=== PATIENT | female | born 1995 | race Caucasian/White ===

== ENCOUNTER 2017-02-13 17:24 | Emergency (ER) | payer OTHER ==
[2017-02-13 17:29] VITALS: BP 132/61; PULSE 98; TEMP 99.1; BMI 25.2
--- NOTE | 2017-02-13 18:33 | PDOC ---
History of Present Illness - General Chief Complaint: Sore Throat Stated Complaint: COLD SYMPTOMS Time Seen by Provider: 02/13/17 18:03 History Source: Patient - History of Present Illness Initial Comments: 02/13/17 18:36 Pt. is a 22 y/o female with no significant PMH who presents to fast track today complaining of 3 days of generalized body aches, sore throat, ear ache, self reported fevers, nausea and vomiting. Pt states that her throat started to bother her first and the other symptoms followed. States that she vomited twice today and developed chills so she decided to be evaluated. Denies palpitations, chest pain, SOB, diarrhea/constipation, hematuria, frequency, dysuria. Denies recent travel, sick contacts . States she had her flu shot this year. She is currently on her menstrual cycle. Past History - Past Medical History Allergies/Adverse Reactions: Allergies Allergy/AdvReac Type Severity Reaction Status Date / Time No Known Allergies Allergy Verified 02/13/17 17:30 Home Medications: Ambulatory Orders Vit/Iron Fumarate/FA [ Tablet] 1 each PO DAILY 02/03/16 Asthma: No Cancer: No Cardiac Disorders: No Diabetes: No HTN: No Seizures: No Thyroid Disease: No Other medical history: PATIENT DENIES PAST MEDICAL HISTORY - Reproductive History (#): 2 Para: 0 Therapeutic (s) & number: Yes (2) Spontaneous : 2 - Psycho/Social/Smoking Cessation Hx Anxiety: No Suicidal Ideation: No Smoking History: Never smoked Have you smoked in the past 12 months: No Hx Alcohol Use: No Drug/Substance Use Hx: No Substance Use Type: None Hx Substance Use Treatment: No *Physical Exam - Vital Signs Last Vital Signs Temp Pulse Resp BP Pulse Ox 99.1 F 98 H 18 132/61 98 02/13/17 17:26 02/13/17 17:26 02/13/17 17:26 02/13/17 17:26 02/13/17 17:26 - Physical Exam Comments: 02/13/17 18:44 General: NAD; AAOx3, Tachycardic HEENT: Normocephalic, atraumatic, PERRLA (+), JAIR, (-) scleral icterus. TMs pearly mason with good cones of light and landmarks bilaterally. No erythema in the posterior pharynx, tonsils 1+ in size. Neck: (-) LAD, (-) thyromegaly Cardiac: Tachycardic, regular rhythm. S1 and S2 heard. No M/R/G: Respiratory: Chest expansion equal B/L; CTAB ABD: Soft, non-tender. (+) bowel sounds, (-) tenderness to palpation in all quadrants. No organomegaly Medical Decision Making - Medical Decision Making 02/13/17 19:08 Pt is a 22 y/o female with no significant PMH presenting with flu like symptoms. Flu swab collected and ibuprofen given for pain. Centor score 0. Pt. currently has her menstrual cycle, UA shows leukoesterases, but pt. denies urinary symptoms. Will get a Urine culture. If positive will start antibiotic at that time. Will re-evaluate. 02/13/17 20:07 Flu swab negative. D/C home with instructions for viral illness. *DC/Admit/Observation/Transfer Diagnosis at time of Disposition: Viral syndrome - Discharge Dispostion Disposition: HOME Condition at time of disposition: Improved Admit: No - Referrals Referrals: Rayne Kessler MD [Primary Care Provider] - - Patient Instructions Printed Discharge Instructions: DI for Viral Syndrome Additional Instructions: You have a viral illness; your flu swab was negative. Drink plenty of fluids and take ibuprofen 800mg every 8 hours as needed for fevers, pain, or chills. Follow up with your primary care doctor in one week. - Post Discharge Activity Work/School Note: Back to Work
[2017-02-13] MEDS ORDERED: IBUPROFEN 400 MG TABLET (FP) PO ONE ×2 (18:34→19:21)
== END 2017-02-13 20:30 | disposition home or self-care (01) ==
LOC: JERFT 17:24
DX: B34.9 Viral infection, unspecified (principal)
CPT/HCPCS: 81003; 81015; 84703; 87086; 87804; 99281-25

== ENCOUNTER 2017-08-19 21:08 | Emergency (ER) | payer OTHER ==
[2017-08-19 21:23] VITALS: BP 146/88; PULSE 90; TEMP 99.1; BMI 25.2
[2017-08-19 22:39] LABS: URINE APPEARANCE SLCLOUDY; URINE BILIRUBIN NEGATIVE (NEGATIVE); URINE BLOOD NEGATIVE (NEGATIVE); URINE COLOR YELLOW; URINE GLUCOSE (UA) NEGATIVE (NEGATIVE); URINE KETONE NEGATIVE (NEGATIVE); URINE NITRITE NEGATIVE (NEGATIVE); URINE PROTEIN NEGATIVE (NEGATIVE)
[2017-08-19] MEDS ORDERED: DEXAMETHASONE SOD PHOSPHATE 10 MG/1 ML VIAL ONE (23:05)
[2017-08-19] MEDS ORDERED: DEXAMETHASONE LIQUID 0.5 MG/5 ML 240 ML BULK BOTTLE PO ONE (23:06)
--- NOTE | 2017-08-19 23:06 | PDOC ---
History of Present Illness - General Chief Complaint: Injury Stated Complaint: FALL INJURY Time Seen by Provider: 08/19/17 22:50 History Source: Patient Exam Limitations: No Limitations - History of Present Illness Initial Comments: 08/19/17 23:14 This is a 22-year-old woman with past medical history of migraines who presents today with lower back pain status post slip and fall while at work yesterday. Patient states she was at work return to us look at her friend and slipped on some bright crumbs falling down landing on her buttocks with more weight on the left side versus the right. Patient denies striking her head or any loss of consciousness. Patient denies any saddle anesthesia or numbness and tingling to bilateral lower extremities. Patient states she feels feverish but has not checked her temperature. Patient endorses a sore throat which makes it difficult for her to swallow. She reports decrease in appetite for the past 2 days and states she has not eaten or drinking anything throughout the day today. She denies chest pain, shortness of breath, cough, abdominal pain, nausea , vomiting. Patient states she has not had a menstrual period in the past 3 months. Past History - Past Medical History Allergies/Adverse Reactions: Allergies Allergy/AdvReac Type Severity Reaction Status Date / Time No Known Allergies Allergy Verified 02/13/17 17:30 Home Medications: Ambulatory Orders Oseltamivir Phosphate [Tamiflu -] 75 mg PO DAILY #5 capsule 08/19/17 Asthma: No Cancer: No Cardiac Disorders: No Diabetes: No HTN: No Seizures: No Thyroid Disease: No - Reproductive History (#): 2 Para: 0 Therapeutic (s) & number: Yes (2) Spontaneous : 2 - Suicide/Smoking/Psychosocial Hx Smoking History: Never smoked Have you smoked in the past 12 months: No Information on smoking cessation initiated: No Hx Alcohol Use: No Drug/Substance Use Hx: No Substance Use Type: None Hx Substance Use Treatment: No *Physical Exam - Vital Signs Last Vital Signs Temp Pulse Resp BP Pulse Ox 99.1 F 90 16 146/88 98 08/19/17 21:18 08/19/17 21:18 08/19/17 21:18 08/19/17 21:18 08/19/17 21:18 ED Treatment Course - ADDITIONAL ORDERS Additional order review: Laboratory Results 08/19/17 08/19/17 22:30 22:30 Urine Color Yellow Urine Appearance Slcloudy Urine pH 5.0 Urine Protein Negative Urine Glucose (UA) Negative Urine Ketones Negative Urine Blood Negative Urine Nitrite Negative Urine Bilirubin Negative Urine Urobilinogen 2.0 H Urine HCG, Qual Negative Medical Decision Making - Medical Decision Making 08/19/17 23:14 A/P: This is a 22-year-old woman with past medical history of migraines who presents today with lower back pain status post slip and fall while at work yesterday. Patient states she was at work return to us look at her friend and slipped on some bright crumbs falling down landing on her buttocks with more weight on the left side versus the right. Patient denies striking her head or any loss of consciousness. Patient denies any saddle anesthesia or numbness and tingling to bilateral lower extremities. Patient states she feels feverish but has not checked her temperature. Patient endorses a sore throat which makes it difficult for her to swallow. She reports decrease in appetite for the past 2 days and states she has not eaten or drinking anything throughout the day today. She denies chest pain, shortness of breath, cough, abdominal pain, nausea , vomiting. Patient states she has not had a menstrual period in the past 3 months. Patient is alert and oriented 3 and in no apparent distress. Inspection of the oropharynx shows peritonsillar erythema without exudate. Palpable submandibular lymph nodes bilaterally. No anterior or posterior cervical lymphadenopathy present. Tenderness to right lateral neck. No muscle spasm appreciated. Patient with full range of motion of neck without difficulty. Chest nontender. Respirations even and unlabored. Patient speaking in full sentences. Lungs clear to auscultation bilaterally. Regular rate and rhythm. S1 and S2 present. No murmurs, rub or gallop. Normoactive bowel sounds. Abdomen soft nontender nondistended. Patient with paraspinous tenderness to left paraspinous region. No muscle spasms appreciated. Patient with full range of motion against resistance of all extremities. +2 DP and PT pulses. Full sensation in lower extremities. Palpation of spine in the lower back reveals no deformities, crepitus or step offs. Diagnosisviral illness, traumatic lower back pain. Patient is refusing influenza testing at this time. I will profile thickly treat influenza by given prescription for Tamiflu which patient should take 75 mg daily for the next 5 days. Patient to take Tylenol as needed for fever and/ or pain. I will give the patient 10 mg of Decadron orally now to assist in swallowing. *DC/Admit/Observation/Transfer Diagnosis at time of Disposition: Viral syndrome Back pain Qualifiers: Back pain location: low back pain Chronicity: acute Back pain laterality: right Sciatica presence: without sciatica Qualified Code(s): M54.5 - Low back pain - Discharge Dispostion Disposition: HOME Condition at time of disposition: Stable Admit: No - Prescriptions Prescriptions: Oseltamivir Phosphate [Tamiflu -] 75 mg PO DAILY #5 capsule - Referrals Referrals: Rayne Kessler MD [Primary Care Provider] - - Patient Instructions Printed Discharge Instructions: DI for Low Back Pain, DI for Viral Pharyngitis Additional Instructions: Drink plenty of fluids. Take Tamiflu 75 mg 1 tablet daily for the next 5 days. Take Tylenol as directed by manufacturers instructions as needed for fever and pain. Make take phenylephrine to help with nasal congestion as directed by manufacturers instructions. After a fall, pain usually gets worse for the first 2-3 days and won't improve until 4 days after the injury. Return to emergency department for any numbness or tingling to the legs, genitals, rectal, severe pain not relieved by medications, change in voice, difficulty swallowing her own saliva, or any other concerns. Thank you for choosing us to provide your emergent healthcare needs. - Post Discharge Activity Forms/Work/School Notes: Back to Work
[2017-08-20 11:43] LABS: URINE LEUK ESTERASE Negative (NEGATIVE)
== END 2017-08-19 23:07 | disposition home or self-care (01) ==
LOC: JERFT 21:08
DX: M54.5 Low back pain (principal); B34.9 Viral infection, unspecified; W01.0XXA Fall on same level from slipping, tripping and stumbling without subsequent striking against object, initial encounter; Y93.89 Activity, other specified; Y92.512 Supermarket, store or market as the place of occurrence of the external cause; Y99.0 Civilian activity done for income or pay
CPT/HCPCS: 81003; 84703; 99281-25

== ENCOUNTER 2018-07-27 19:55 | Emergency (ER) | payer OTHER ==
[2018-07-27 20:02] VITALS: BP 126/70; PULSE 60; TEMP 98.3; BMI 25.3
--- NOTE | 2018-07-27 20:06 | PDOC ---
History of Present Illness - General Chief Complaint: Vaginal Bleeding Stated Complaint: ,Possible/VAGINAL BLEEDING Time Seen by Provider: 07/27/18 20:06 Past History - Past Medical History Allergies/Adverse Reactions: Allergies Allergy/AdvReac Type Severity Reaction Status Date / Time No Known Allergies Allergy Verified 07/27/18 20:01 Home Medications: Ambulatory Orders Oseltamivir Phosphate [Tamiflu -] 75 mg PO DAILY #5 capsule 08/19/17 Asthma: No Cancer: No Cardiac Disorders: No COPD: No Diabetes: No HTN: No Seizures: No Thyroid Disease: No - Reproductive History (#): 2 Para: 0 Therapeutic (s) & number: Yes (2) Spontaneous : 2 - Suicide/Smoking/Psychosocial Hx Smoking History: Never smoked Have you smoked in the past 12 months: No Hx Alcohol Use: No Drug/Substance Use Hx: No Substance Use Type: None Hx Substance Use Treatment: No *Physical Exam - Vital Signs Last Vital Signs Temp Pulse Resp BP Pulse Ox 98.3 F 60 18 126/70 100 07/27/18 19:59 07/27/18 19:59 07/27/18 19:59 07/27/18 19:59 07/27/18 19:59 *DC/Admit/Observation/Transfer - Referrals Referrals: Brandyn Cohen MD [Primary Care Provider] - - Patient Instructions - Post Discharge Activity
[2018-07-27 20:33] LABS: BASO % 0.5 % (0-2.0); EOS % 0.9 % (0-4.5); LYMPH % 31.1 % (8-40); MCH 22.5 pg (25.7-33.7); MCHC 32.3 g/dl (32.0-36.0); MEAN CELL VOLUME 69.6 fl (80-96); MONO % 6.9 % (3.8-10.2); NEUT % 60.6 % (42.8-82.8); PLATELET COUNT 159 K/MM3 (134-434); RBC 4.89 M/mm3 (3.60-5.2); RDW 13.7 % (11.6-15.6); WHITE BLOOD COUNT 7.4 K/mm3 (4.0-10.0)
[2018-07-27 20:39] LABS: URINE APPEARANCE CLEAR; URINE BILIRUBIN NEGATIVE (<2.0 mg/dL); URINE COLOR LTYELLOW; URINE GLUCOSE (UA) NEGATIVE (NEGATIVE); URINE KETONE NEGATIVE (NEGATIVE); URINE LEUK ESTERASE TRACE (NEGATIVE); URINE NITRITE NEGATIVE (NEGATIVE); URINE PROTEIN NEGATIVE (NEGATIVE); URINE UROBILINOGEN NEGATIVE mg/dL (0.2-1.0)
[2018-07-27 20:48] LABS: EPI CELLS FEW /HPF (FEW); URINE MUCUS RARE
--- NOTE | 2018-07-27 21:06 | PDOC ---
History of Present Illness - General Chief Complaint: Vaginal Bleeding Stated Complaint: ,Possible/VAGINAL BLEEDING Time Seen by Provider: 07/27/18 20:06 History Source: Patient Exam Limitations: No Limitations - History of Present Illness Travel History: No Initial Comments: 07/28/18 01:06 Best Contact: PCP: Dr. Tavares/OB Pmhx:0 Pshx:0 Allergies:NKDA FH:0 Social Hx: Cigarettes/ 0 Alcohol/ 0 Drugs/0 LMP:Jul 04, 2018 23-year-old female presents to the emergency department stating she had vaginal discharge. Patient states she noticed a quarter size blood clot times approximately 6 hours ago without abdominal discomfort, flank pains, urinary symptoms: Frequency/urgency/hesitancy, hematuria, nausea/vomiting, fever/chills , headache, dizziness, lightheadedness, chest pain, shortness of breath. Patient states she was advised by her PMD 2 days ago that she was unknown for how long. Patient has an appointment with her recruitment director in 3 days. Past History - Past Medical History Allergies/Adverse Reactions: Allergies Allergy/AdvReac Type Severity Reaction Status Date / Time No Known Allergies Allergy Verified 07/27/18 20:01 Home Medications: Ambulatory Orders NK [No Known Home Medication] 07/27/18 Asthma: No Cancer: No Cardiac Disorders: No COPD: No Diabetes: No HTN: No Seizures: No Thyroid Disease: No - Reproductive History Is Patient Now?: Yes (#): 4 Para: 1 Therapeutic (s) & number: Yes (2) Spontaneous : 2 - Suicide/Smoking/Psychosocial Hx Smoking History: Never smoked Have you smoked in the past 12 months: No Hx Alcohol Use: No Drug/Substance Use Hx: No Substance Use Type: None Hx Substance Use Treatment: No Review of Systems - Review of Systems Able to Perform ROS?: Yes Comments:: 07/28/18 01:12 CONSTITUTIONAL: Absent: fever, chills, diaphoresis, generalized weakness, malaise, loss of appetite HEENT: Absent: rhinorrhea, nasal congestion, throat pain, throat swelling, difficulty swallowing, mouth swelling, ear pain, eye pain, visual Changes CARDIOVASCULAR: Absent: chest pain, loss of consciousness, palpitations, irregular heart rate, peripheral edema RESPIRATORY: Absent: cough, shortness of breath, dyspnea with exertion, orthopnea, wheezing, stridor, hemoptysis GASTROINTESTINAL: Vaginal clot ~ quarter size Absent: abdominal pain, abdominal distension, nausea, vomiting, diarrhea, constipation, melena, hematochezia GENITOURINARY: Absent: dysuria, frequency, urgency, hesitancy, hematuria, flank pain, genital pain MUSCULOSKELETAL: Absent: myalgia, arthralgia, joint swelling SKIN: Absent: rash, itching, pallor Is the patient limited Micronesian proficient: No *Physical Exam - Vital Signs Last Vital Signs Temp Pulse Resp BP Pulse Ox 98.3 F 60 18 126/70 100 07/27/18 19:59 07/27/18 19:59 07/27/18 19:59 07/27/18 19:59 07/27/18 19:59 - Physical Exam Comments: 07/28/18 01:13 GENERAL: Well developed, well nourished. Awake and alert. No acute distress. HEENT: Normocephalic, atraumatic. PERRLA, EOMI. No conjunctival pallor. Sclera are non- icteric. Moist mucous membranes. Oropharynx is clear. NECK: Supple. Full ROM. No JVD. Carotid pulses 2+ and symmetric, without bruits. No thyromegaly. No lymphadenopathy. CARDIOVASCULAR: Regular rate and rhythm. No murmurs, rubs, or gallops. Distal pulses are 2+ and symmetric. PULMONARY: No evidence of respiratory distress. Lungs clear to auscultation bilaterally. No wheezing, rales or rhonchi. ABDOMINAL: Soft. Non-tender. Non-distended. No rebound or guarding. No organomegaly. Normoactive bowel sounds. MUSCULOSKELETAL Normal range of motion at all joints. No bony deformities or tenderness. No CVA tenderness. EXTREMITIES: No cyanosis. No clubbing. No edema. No calf tenderness. SKIN: Warm and dry. Normal capillary refill. No rashes. No jaundice. Pelvic: External genitalia normal without lesions. Vaginal vault is clear without blood or discharge. Cervix is long and closed. ED Treatment Course - LABORATORY CBC & Chemistry Diagram: 07/27/18 20:20 07/27/18 20:20 - ADDITIONAL ORDERS Additional order review: Laboratory Results 07/27/18 20:20 Urine Color Ltyellow Urine Appearance Clear Urine pH 6.0 Ur Specific Alpha 1.023 Urine Protein Negative Urine Glucose (UA) Negative Urine Ketones Negative Urine Blood Negative Urine Nitrite Negative Urine Bilirubin Negative Urine Urobilinogen Negative Ur Leukocyte Esterase Trace Urine WBC (Auto) 8 Urine RBC (Auto) 2 Ur Epithelial Cells Few Urine Mucus Rare 07/27/18 20:20 RBC 4.89 MCV 69.6 L MCHC 32.3 RDW 13.7 D MPV 10.0 Neutrophils % 60.6 Lymphocytes % 31.1 D Monocytes % 6.9 Eosinophils % 0.9 Basophils % 0.5 - RADIOLOGY Radiology Studies Ordered: Category Date Time Status TRANSVAGINAL US PREG [US] Stat Ultrasound 07/27/18 20:47 Ordered Radiograph Interpretation: 07/28/18 01:14 Transvaginal ultrasound: Live IUP with estimated age of 6 weeks and 2 days. A small to moderate-sized subchorionic bleed *DC/Admit/Observation/Transfer Diagnosis at time of Disposition: Threatened - Discharge Dispostion Disposition: HOME Condition at time of disposition: Stable Decision to Admit order: No - Referrals Referrals: Brandyn Cohen MD [Primary Care Provider] - Radha Tavares MD [Staff Physician] - - Patient Instructions Printed Discharge Instructions: DI for Threatened Additional Instructions: Hay un embarazo en vivo estimado a las 6 semanas y 2 rubio. Hay un sangrado subcorinico de tamao moderado. Sin relaciones sexuales Debe hacer un seguimiento con pardo gineclogo esta semana. Regrese a la gian de emergencias por cualquier inquietud, sntomas severos / persistentes / que empeoren. Beta HCG 12137.1 - Post Discharge Activity
[2018-07-27 21:26] LABS: ALBUMIN 3.4 g/dl (3.4-5.0); ALK PHOS 60 U/L (45-117); ANION GAP 8 MMOL/L (8-16); BILIRUBIN,TOTAL 0.2 mg/dL (0.2-1); BLOOD UREA NITROGEN 11 mg/dL (7-18); CALCIUM 8.8 mg/dL (8.5-10.1); CHLORIDE 110 mmol/L (98-107); CO2 25 mmol/L (21-32); CREATININE 0.5 mg/dL (0.55-1.3); GLUCOSE,RANDOM 82 mg/dL (74-106); POTASSIUM 4.6 mmol/L (3.5-5.1); SGOT/AST 10 U/L (15-37); SGPT/ALT 19 U/L (13-61); SODIUM 142 mmol/L (136-145); TOT PROT 6.6 g/dl (6.4-8.2)
== END 2018-07-28 00:37 | disposition home or self-care (01) ==
LOC: JER 19:55
DX: O26.891 Other specified pregnancy related conditions, first trimester (principal); O20.0 Threatened abortion; Z3A.01 Less than 8 weeks gestation of pregnancy
CPT/HCPCS: 36415; 76817-TC; 80053; 81003; 81015; 84702; 85025; 86850; 86900; 86901; 99282-25

== ENCOUNTER 2018-08-23 02:13 | Emergency (ER) | payer OTHER ==
[2018-08-23 02:51] VITALS: BP 110/66; PULSE 73; TEMP 98.6; BMI 25.3
--- NOTE | 2018-08-23 03:05 | PDOC ---
History of Present Illness - General Chief Complaint: Vaginal Bleeding Stated Complaint: VAGINAL BLEEDING, 10 WKS Time Seen by Provider: 08/23/18 02:56 History Source: Patient Exam Limitations: No Limitations - History of Present Illness Initial Comments: 08/23/18 03:21 Ms Hernandes Is a 23-year-old female who presents emergency department due to vaginal bleeding. She is an otherwise healthy at appeoximately 10 weeks. She has a known intrauterine based on an ultrasound from the end of last month which demonstrated a moderate subchorionic hemorrhage, and is O+. Patient states she previously had been spotting. This past week she's noticed no vaginal bleeding. Approximate 2 hours prior to arrival she felt the sensation that she had to urinate. When she did so she noted bleeding. Since that time she saturated 1 pad. NO ABDOMINAL PAIN 08/23/18 03:23 PMH: Denies PSH: Denies Meds: denies ALL: NKDA 08/23/18 03:25 ROS: GENERAL/CONSTITUTIONAL: No: weakness HEAD, EYES, EARS, NOSE AND THROAT: No: change in vision CARDIOVASCULAR: No: chest pain, lightheadedness, palpitations RESPIRATORY: No: cough, shortness of breath GASTROINTESTINAL: No: nausea, vomiting, diarrhea, abdominal cramping, rectal bleeding, constipation. GENITOURINARY: No: dysuria, hematuria, frequency, urgency, flank pain. COMMUNITY PLANNING TECHNICIAN: vaginal bleeding MUSCULOSKELETAL: No: back pain, neck pain, joint pain, muscle swelling or pain SKIN AND BREASTS: No: pallor, rash or easy bruising. NEUROLOGIC: No: headache, vertigo, paresthesias, weakness ENDOCRINE: No: unexplained weight gain or loss HEMATOLOGIC/LYMPHATIC: No: anemia, easy bleeding, swelling nodes. PE: GENERAL: The patient is in no acute distress. HEAD: Normal with no signs of trauma. EYES: PERRLA, EOMI, sclera anicteric, conjunctiva clear. ENT: Moist mucous membranes. NECK: Normal range of motion, supple without lymphadenopathy LUNGS: Breath sounds equal, clear to auscultation bilaterally. No wheezes, and no crackles. HEART:Regular rate and rhythm ABDOMEN: Soft, nontender COMMUNITY PLANNING TECHNICIAN: PT REFUSED PELVIC EXAMINATION EXTREMITIES: Normal range of motion NEUROLOGICAL: Cranial nerves II through XII grossly intact. Normal speech. No focal neurological deficits. MUSCULOSKELETAL: no CVA tenderness SKIN: Warm, Dry, normal turgor, no rashes or lesions noted. Past History - Past Medical History Allergies/Adverse Reactions: Allergies Allergy/AdvReac Type Severity Reaction Status Date / Time No Known Allergies Allergy Verified 07/27/18 20:01 Home Medications: Ambulatory Orders Prenat 115/Iron Fum/Folic/Dss [ 19 Tablet] 1 each PO DAILY 08/23/18 Asthma: No Cancer: No Cardiac Disorders: No COPD: No Diabetes: No HTN: No Seizures: No Thyroid Disease: No - Reproductive History (#): 4 Para: 1 Therapeutic (s) & number: Yes (2) Spontaneous : 2 - Suicide/Smoking/Psychosocial Hx Smoking History: Never smoked Have you smoked in the past 12 months: No Hx Alcohol Use: No Drug/Substance Use Hx: No Substance Use Type: None Hx Substance Use Treatment: No *Physical Exam - Vital Signs Last Vital Signs Temp Pulse Resp BP Pulse Ox 98.6 F 73 19 110/66 99 08/23/18 02:15 08/23/18 02:15 08/23/18 02:15 08/23/18 02:15 08/23/18 02:15 Medical Decision Making - Medical Decision Making 08/23/18 03:31 Pt asked to disrobe in order for me to complete her pelvic examination When I returned to her room, the patient was still dressed and told me that she did not want to proceed with examination or labs as she came to the ER in order to get an ultrasound. Given Ultrasound is not available until the morning, she would prefer to go home and come back in the morning Pt asked to return immediately for heavy bleeding, light headedness, chest pain *DC/Admit/Observation/Transfer Diagnosis at time of Disposition: Threatened - Discharge Dispostion Disposition: HOME Condition at time of disposition: Stable Decision to Admit order: No - Referrals Referrals: Abby Burgos DO [Primary Care Provider] - - Patient Instructions Printed Discharge Instructions: DI for Threatened Additional Instructions: RETURN TO THE ER FOR REPEAT EVALUATION IN THE MORNING RETURN SOONER IF YOU HAVE HEAVY BLEEDING, CHEST PAIN, PALPITATIONS - Post Discharge Activity
== END 2018-08-23 03:23 | disposition home or self-care (01) ==
LOC: JER 02:13
DX: O26.891 Other specified pregnancy related conditions, first trimester (principal); Z3A.10 10 weeks gestation of pregnancy; O20.0 Threatened abortion
CPT/HCPCS: 99281-25

== ENCOUNTER 2018-08-23 09:11 | Emergency (ER) | payer OTHER ==
[2018-08-23 09:22] VITALS: BMI 24.8
--- NOTE | 2018-08-23 10:12 | PDOC ---
Attending Attestation - HPI HPI: 08/23/18 11:11 CC: Vaginal bleeding HPI: The patient is a 23 year old 10 weeks female A3, with no significant past medical history, who presents to the emergency department with , vaginal bleeding. As per patient, she was in the ED last night for similar symptoms but, was discharged because she did not want to wait for ultrasound in the AM. Patient notes since her discharged she has bled through 2 pads with clots noted, prompting her visit to the ED. She denies recent fevers, chills, headache or dizziness. She denies recent nausea, vomit, diarrhea or constipation. She denies recent dysuria, frequency, urgency or hematuria. She denies recent chest pain or shortness of breath. Allergies: NKDA Social history: Nonsmoker. Denies EtOH use and recreational drug use. OBGYN: Dr. Tavares Blood Type: O+ LMP: 07/14/18 - Physicial Exam PE: 08/23/18 12:48 Exam: Vitals: Triage Vital signs reviewed General Appearance: no acute distress, well nourished well developed, Head: Atraumatic, normocephalic Nose: No nasal congestion Neck: Supple;No Nuchal rigidity Chest Wall: Nontender Cardiac: Regular rate and rhythm, no murmurs, no rubs, no gallops, Lungs: Clear to auscultation bilateral, good air movement bilaterally, Abdomen: Soft, nondistended, normal bowel sounds, nontender to palpation Rectal: Exam deferred Pelvic: Refer to resident exam. Extremities: Full range of motion to all extremities, no cyanosis, clubbing, or edema Skin: Warm and dry, no rashes or lesions, no petechiae Neuro: AOX3; Cranial Nerves 2-12 grossly intact, Strength intact to all extremities, Sensation intact to all extremities Psych: normal mood, normal affect - Medical Decision Making 08/23/18 12:48 23 year old female with no significant history present to the ED with vaginal bleeding. Plan is to: Labs Beta HCG Serum Ultrasound Reassess <Tim Velarde - Last Filed: 08/23/18 12:48> - Resident Resident Name: Criselda Payne - ED Attending Attestation I have performed the following: I have examined & evaluated the patient, The case was reviewed & discussed with the resident, I agree w/resident's findings & plan, Exceptions are as noted - Medical Decision Making Positive IUP on ultrasound history examination consistent with threatened miscarriage Findings, the need for follow-up and strict return instructions discussed with patient. <Brandyn Yancey - Last Filed: 08/23/18 15:19> Attestations - Attestations 08/23/18 11:11 Documentation prepared by Tim Velarde, acting as regional medical director for Brandyn Yancey MD. <Tim Velarde - Last Filed: 08/23/18 12:48>
--- NOTE | 2018-08-23 10:34 | PDOC ---
History of Present Illness - General Chief Complaint: Vaginal Bleeding Stated Complaint: REVISIT, VAGINAL BLEEDING Time Seen by Provider: 08/23/18 09:40 History Source: Patient - History of Present Illness Initial Comments: 23F (A3) currently 10 weeks w/ pmhx of subchorionic hematoma (diagnosed this 07/16) presents with vaginal bleeding since 1am. Pt states she has gone through 3 pads since this am. Admits to intermittent, abdominal cramping. Denies headache/dizziness, lightheadedness, vision changes, chest pain , sob, urinary/bowel symptoms, blood in urine/stool. Denies easy bleeding/ bruising, hx of bleeding disorders. PMHx: As per HPI PSHx: none FHx: Denies Social: Denies tobacco, alcohol, rec drug use Pt currently lives at home with and daughter. Un-employed. OBGYN: previously had IUD prior to this PE: Gen: AAOx3. NAD. Comfortable. HEENT: AT/NC. EOMI. JOSÉ. Moist mucus membranes. Neck: Supple, NT. No LAD/JVD. Lungs: CTA B/L. No wheezes. Heart: RRR, normal S1, S2. No murmurs noted. Abd: Gravid. Soft NT/ND. +BS in all 4Qs. MSK: No peripheral edema noted. 5/5 muscle strength u/l b/l extremities. 5+ dorsalis pedis pulses b/l. Neuro: CN II-XII intact. Facial symmetry noted. B/l sensation intact. Skin: Warm, good turgor. 08/23/18 12:23 Past History - Past Medical History Allergies/Adverse Reactions: Allergies Allergy/AdvReac Type Severity Reaction Status Date / Time No Known Allergies Allergy Verified 08/23/18 09:19 Home Medications: Ambulatory Orders Prenat 115/Iron Fum/Folic/Dss [ 19 Tablet] 1 each PO DAILY 08/23/18 Asthma: No Cancer: No Cardiac Disorders: No COPD: No Diabetes: No HTN: No Seizures: No Thyroid Disease: No - Reproductive History (#): 4 Para: 1 Therapeutic (s) & number: Yes (2) Spontaneous : 2 - Immunization History Immunization Up to Date: Yes - Suicide/Smoking/Psychosocial Hx Smoking History: Never smoked Have you smoked in the past 12 months: No Hx Alcohol Use: No Drug/Substance Use Hx: No Substance Use Type: None Hx Substance Use Treatment: No Review of Systems - Review of Systems Able to Perform ROS?: Yes Is the patient limited French proficient: No Constitutional: No: Chills, Fever HEENTM: No: Blurred Vision, Recent change in vision, Double Vision Respiratory: No: Cough, Orthopnea Cardiac (ROS): No: Chest Pain, Lightheadedness, Palpitations, Chest Tightness ABD/GI: Yes: Abdominal cramping. No: Constipated, Diarrhea, Nausea, Vomiting Neurological: No: Headache, Weakness, Dizziness Hematologic/Lymphatic: No: Easy Bleeding, Easy Bruising *Physical Exam - Vital Signs Last Vital Signs Temp Pulse Resp BP Pulse Ox 98.6 F 66 16 115/68 100 08/23/18 09:20 08/23/18 09:20 08/23/18 09:20 08/23/18 09:20 08/23/18 09:20 ED Treatment Course - LABORATORY CBC & Chemistry Diagram: 08/23/18 09:56 - ADDITIONAL ORDERS Additional order review: Laboratory Results 08/23/18 09:56 Serum , Qual Positive - RADIOLOGY Radiology Studies Ordered: Category Date Time Status <14WKS US [US] Stat Ultrasound 08/23/18 09:45 Taken Medical Decision Making - Medical Decision Making Vaginal bleeding likely 2/2 subchorionic hematoma; pt also has hx of multiple miscarriages. -Transvaginal u/s done; showed single live intrauterine w/ estimated sonographic gestational age of 10 weeks and 3 days. heart activity was documented. Suggestion of small subchorionic hemorrhage along the R lateral margin of gestational sac. 08/23/18 12:48 *DC/Admit/Observation/Transfer Diagnosis at time of Disposition: Vaginal bleeding - Discharge Dispostion Disposition: HOME Condition at time of disposition: Good Decision to Admit order: No - Referrals - Patient Instructions Additional Instructions: You were seen in the ED and found to have vaginal bleeding. A vaginal ultrasound was done showing an intrauterine with concerning acute condition. Please follow up with your OBGYN within 1 week. If you continue to experience persistent heavy vaginal bleeding (using 2-3 or more pads/hour), persistent abdominal cramping, chest pain, shortness of breath , please proceed to your nearest emergency department immediately. - Post Discharge Activity
[2018-08-23 10:44] LABS: HEMATOCRIT 33.6 % (32.4-45.2); HEMOGLOBIN 10.8 GM/dL (10.7-15.3); MCH 22.3 pg (25.7-33.7); MCHC 32.2 g/dl (32.0-36.0); MEAN CELL VOLUME 69.2 fl (80-96); RBC 4.86 M/mm3 (3.60-5.2); RDW 13.4 % (11.6-15.6); WHITE BLOOD COUNT 6.4 K/mm3 (4.0-10.0)
[2018-08-23 10:45] LABS: MEAN PLT VOLUME 10.4 fl (7.5-11.1); PLATELET COUNT 175 K/MM3 (134-434)
[2018-08-23 10:46] LABS: BASO % 0.6 % (0-2.0); EOS % 1.1 % (0-4.5); LYMPH % 30.1 % (8-40); MONO % 5.5 % (3.8-10.2); NEUT % 62.7 % (42.8-82.8)
[2018-08-23 13:02] VITALS: BP 117/68; PULSE 79; TEMP 98.8
== END 2018-08-23 13:00 | disposition home or self-care (01) ==
LOC: JER 09:11
DX: O26.891 Other specified pregnancy related conditions, first trimester (principal); Z3A.10 10 weeks gestation of pregnancy; N93.9 Abnormal uterine and vaginal bleeding, unspecified
CPT/HCPCS: 36415; 76801-TC; 76817-TC; 84702; 84703; 85025; 99282-25

== ENCOUNTER 2019-03-14 17:50 | Inpatient (IN) | payer OTHER ==
[2019-03-14 18:39] VITALS: BMI 28.6
[2019-03-14 19:46] LABS: BASO % 0.2 % (0-2.0); EOS % 0.6 % (0-4.5); HEMATOCRIT 30.8 % (32.4-45.2); HEMOGLOBIN 9.5 GM/dL (10.7-15.3); LYMPH % 17.5 % (8-40); MCH 21.2 pg (25.7-33.7); MEAN CELL VOLUME 68.6 fl (80-96); MEAN PLT VOLUME 10.3 fl (7.5-11.1); MONO % 6.1 % (3.8-10.2); NEUT % 75.6 % (42.8-82.8); PLATELET COUNT 179 K/MM3 (134-434); RBC 4.49 M/mm3 (3.60-5.2); RDW 15.4 % (11.6-15.6); WHITE BLOOD COUNT 12.1 K/mm3 (4.0-10.0)
[2019-03-14 20:10] LABS: INR 0.92 (0.83-1.09); PROTHROMBIN TIME (PATIENT) 10.8 SEC (9.7-13.0)
[2019-03-14 20:13] LABS: ACTIVATED PTT 25.8 SECONDS (25.2-36.5)
[2019-03-14 20:20] LABS: CALCIUM 8.4 mg/dL (8.5-10.1); CREATININE 0.7 mg/dL (0.55-1.3); POTASSIUM 3.8 mmol/L (3.5-5.1)
[2019-03-14 20:52] LABS: ANISOCYTOSIS 1+
[2019-03-14 20:53] LABS: PLATELET ESTIMATE ADEQUATE; TARGET CELLS 1+
[2019-03-14] MEDS: ELECTROLYTE-148 SOLN 1,000 ML IV SCH ×2 (21:00→22:30)
[2019-03-14] MEDS ORDERED: BUTORPHANOL TARTRATE 1 MG/ML VIAL IVPUSH PRN (21:03)
[2019-03-14] MEDS ORDERED: PROMETHAZINE HCL 25 MG/1 ML VIAL IVPUSH PRN (21:04)
--- NOTE | 2019-03-14 21:09 | HP ---
Past Medical History - Admission Chief Complaint: Back pain History of Present Illness: 24 yo @ 39 weeks gestation, EDC 03/20/19, admitted for augmentation of labor. She was seen in office today and was found to be 4cm dilated. History Source: Patient Limitations to Obtaining History: No Limitations - Past Medical History ...: 4 ...Para: 1 ...Term: 1 ...: 0 ...Spon : 2 ...Induced : 0 ...Multiple Gestation: 0 ...LMP: 06/13/18 ... Weeks Gestation by Dates: 39.1 ...EDC by Dates: 03/20/19 ...EDC by Sono: 03/20/19 - Past Surgical History Past Surgical History: Yes: None Hx Myomectomy: No Hx Transabdominal Cerclage: No - Smoking History Smoking history: Unknown if ever smoked Have you smoked in the past 12 months: No - Alcohol/Substance Use Hx Alcohol Use: No History of Substance Use: reports: None - Social History Usual Living Arrangement: Yes: With Spouse History of Recent Travel: No Home Medications - Allergies Allergies/Adverse Reactions: Allergies Allergy/AdvReac Type Severity Reaction Status Date / Time No Known Allergies Allergy Verified 03/14/19 18:41 - Home Medications Home Medications: Ambulatory Orders Prenat 115/Iron Fum/Folic/Dss [ 19 Tablet] 1 each PO DAILY 08/23/18 Family Disease History - Family Disease History Family History: Unremarkable Review of Systems - Review of Systems Constitutional: reports: No Symptoms Eyes: reports: No Symptoms HENT: reports: No Symptoms Neck: reports: No Symptoms Cardiovascular: reports: No Symptoms Respiratory: reports: No Symptoms Gastrointestinal: reports: No Symptoms Genitourinary: reports: Pain Breasts: reports: No Symptoms Reported Musculoskeletal: reports: No Symptoms Integumentary: reports: No Symptoms Neurological: reports: No Symptoms Psychiatric: reports: No Symptoms Pain Intensity: 2 Physical Exam - Maternity Vital Signs: Vital Signs Temperature 98 F 03/14/19 17:50 Pulse Rate 94 H 03/14/19 19:00 Respiratory Rate 18 03/14/19 19:00 Blood Pressure 127/74 03/14/19 19:00 O2 Sat by Pulse Oximetry (%) Constitutional: Yes: Well Nourished Eyes: Yes: Conjunctiva Clear HENT: Yes: Atraumatic Neck: Yes: Supple Cardiovascular: Yes: Regular Rate and Rhythm Lungs: Clear to auscultation Breast(s): Yes: WNL - Abdominal Exam/OB Number of Fetuses: Single Presentation: Vertex - Vaginal Exam/OB Vaginal Bleediing: No Dilatation (cm): 4 Effacement (%): 80 Amniotic Membrane Status: Intact Station: -1 - Physical Exam Musculoskeletal: Yes: WNL Extremities: Yes: WNL Integumentary: Yes: WNL ...Motor Strength: WNL Psychiatric: Yes: Alert, Oriented - Labs Lab Results: CBC, BMP 03/14/19 19:00 03/14/19 19:00 Problem List - Problems (1) 39 weeks gestation of Code(s): Z3A.39 - 39 WEEKS GESTATION OF Assessment/Plan 39 weeks gestation Admit for augmentation of labor Analgesia as needed Anticipate
[2019-03-14] MEDS ORDERED: OXYTOCIN 30 UNITS in 0.9% NS 30 UNIT/500 ML INFUS.BAG IVPB SCH (21:15)
[2019-03-14] MEDS ORDERED: DEXTROSE 5%-LACTATED RINGERS 1,000 ML IV SCH (21:15)
[2019-03-14] MEDS ORDERED: OXYTOCIN 30 UNITS in 0.9% NS 30 UNIT/500 ML INFUS.BAG IVPB ONE (21:29)
[2019-03-14] MEDS ORDERED: ACETAMINOPHEN 325 MG TABLET (FP) ONE (21:29)
[2019-03-14] MEDS ORDERED: AMPICILLIN - 2 GM in SODIUM CHLORIDE 100 ML IVPB ONE (21:30)
[2019-03-14] MEDS ORDERED: AMPICILLIN SODIUM 2 GM VIAL ONE (21:37)
[2019-03-14] MEDS ORDERED: ACETAMINOPHEN 325 MG TABLET (FP) PO ONE (21:45)
[2019-03-14] MEDS: AMPICILLIN - 1 GM in SODIUM CHLORIDE 100 ML IVPB SCH (22:13)
[2019-03-14] MEDS ORDERED: FENTANYL/BUPIVACAINE/NS/PF - PCEA - 50 ML DISP.SYRIN EP ONE (22:42)
[2019-03-14] MEDS ORDERED: NALOXONE HCL 0.4 MG/ML VIAL IVPUSH PRN (22:49)
[2019-03-14] MEDS ORDERED: LIDO 2%/EPI 1:200000 PRESRVFRE (20 ML SDVIAL) ONE (22:51)
[2019-03-14] MEDS ORDERED: BUPIVACAINE HCL/PF 0.25% (2.5MG/ML) 10 ML VIAL ONE (22:51)
[2019-03-14] MEDS ORDERED: FENTANYL/BUPIVACAINE/NS/PF - PCEA - 50 ML DISP.SYRIN EP SCH (23:00)
[2019-03-15] MEDS ORDERED: AMPICILLIN - 1 GM in SODIUM CHLORIDE 100 ML IVPB SCH (01:30)
[2019-03-15] MEDS ORDERED: AMPICILLIN SODIUM 1 GM VIAL ONE (01:37)
[2019-03-15] MEDS ORDERED: ACETAMINOPHEN 325 MG TABLET (FP) ONE ×2 (03:51→07:38)
[2019-03-15] MEDS ORDERED: FENTANYL/BUPIVACAINE/NS/PF - PCEA - 50 ML DISP.SYRIN EP ONE (03:53)
[2019-03-15] MEDS ORDERED: OXYTOCIN 20 UNITS in 0.9% NS 20 UNIT/1,000 ML INFUS.BAG IV ONE ×2 (04:09→08:22)
[2019-03-15] MEDS ORDERED: LIDOCAINE HCL 1% PRESERVATIVE FREE - 30ML VIAL ONE (04:09)
[2019-03-15] MEDS ORDERED: BENZOCAINE 28 GM HEMORRHOIDAL OINTMENT TP PRN (05:47)
[2019-03-15] MEDS ORDERED: WITCH HAZEL 50% (TUCKS) 40 PAD/JAR PAD TP PRN (05:47)
[2019-03-15] MEDS ORDERED: METHYLERGONOVINE MALEATE 0.2 MG/1 ML AMP IM PRN (05:47)
[2019-03-15] MEDS ORDERED: BENZOCAINE 20% 57 GM BOTTLE TP PRN (05:47)
[2019-03-15] MEDS ORDERED: BISACODYL 10 MG SUPP.RECT RC PRN (05:47)
--- NOTE | 2019-03-15 05:52 | PN ---
Delivery - Delivery Vaginal Delivery: Spontaneous Type of Anesthesia: Epidural Episiotomy/Laceration: None EBL (cc): 300 Delivery, Single - Feeding Plan Initial Plan: Elected not to breastfeed exclusively throughout hospitalization Remarks - Remarks Remarks: Normal spontaneous vaginal delivery of a live infant boy over intact perineum. Nose / Oropharynx suctioned @ perineum. Cord clamped and cut. Baby handed to nurse. Placenta expelled spontaneously intact. Mother in stable condition.
[2019-03-15] MEDS ORDERED: OXYTOCIN 20 UNITS in 0.9% NS 20 UNIT/1,000 ML INFUS.BAG IV SCH (06:00)
[2019-03-15] MEDS ORDERED: IBUPROFEN 600 MG TABLET (FP) PO ONE (07:39)
[2019-03-15] MEDS: IBUPROFEN 600 MG TABLET (FP) PO PRN (07:40)
[2019-03-15] MEDS: ACETAMINOPHEN 325 MG TABLET (FP) PO PRN (07:40)
[2019-03-15] MEDS: FERROUS SO4 325 MG TABLET (FP) PO SCH ×2 (10:41→21:08)
[2019-03-15] MEDS: PRENATAL VITAMINS W/ FOLIC ACID TABLET (FP) PO SCH (10:41)
[2019-03-16] MEDS: ACETAMINOPHEN 325 MG TABLET (FP) PO PRN ×3 (01:06→21:13)
[2019-03-16] MEDS: IBUPROFEN 600 MG TABLET (FP) PO PRN ×3 (01:08→21:14)
--- NOTE | 2019-03-16 06:34 | PN ---
Post Note - Post Date of Delivery: 03/15/19 Post Day: 1 Vital Signs: Vital Signs - 24 hr 03/15/19 03/15/19 03/15/19 06:45 08:06 08:40 Temperature 98.7 F 98.7 F 98.2 F Pulse Rate 80 Respiratory 20 20 18 Rate Blood Pressure 105/56 L 106/60 112/66 O2 Sat by Pulse 100 Oximetry (%) 03/15/19 03/15/19 03/15/19 14:00 18:00 22:00 Temperature 97.9 F 98.2 F 98.5 F Pulse Rate 98 H 94 H 99 H Respiratory 18 18 18 Rate Blood Pressure 114/64 103/58 L 111/58 L O2 Sat by Pulse Oximetry (%) 03/16/19 03/16/19 02:00 06:00 Temperature 98.4 F 98.5 F Pulse Rate 99 H 88 Respiratory 18 18 Rate Blood Pressure 113/63 106/63 O2 Sat by Pulse Oximetry (%) Labs: Laboratory Results - last 24 hr 03/14/19 19:00 RPR Titer Nonreactive - Subjective Subjective: No Complaints - Objective Afebrile: Yes Breast: Not engorged Abdomen: Soft, Non-tender Uterus: Fundus firm, Non-tender Vagina: Scant lochia Extremities: Non-tender - Assessment/Plan (1) (normal spontaneous vaginal delivery) Assessment: S/P Normal Plan: Routine Care
[2019-03-16 07:06] LABS: BASO % 0.4 % (0-2.0); EOS % 0.7 % (0-4.5); HEMATOCRIT 25.6 % (32.4-45.2); HEMOGLOBIN 7.9 GM/dL (10.7-15.3); LYMPH % 21.1 % (8-40); MCH 21.3 pg (25.7-33.7); MCHC 30.7 g/dl (32.0-36.0); MEAN CELL VOLUME 69.3 fl (80-96); MEAN PLT VOLUME 10.2 fl (7.5-11.1); MONO % 5.5 % (3.8-10.2); NEUT % 72.3 % (42.8-82.8); PLATELET COUNT 147 K/MM3 (134-434); RBC 3.69 M/mm3 (3.60-5.2); RDW 15.4 % (11.6-15.6); WHITE BLOOD COUNT 13.7 K/mm3 (4.0-10.0)
[2019-03-16] MEDS: PRENATAL VITAMINS W/ FOLIC ACID TABLET (FP) PO SCH (09:18)
[2019-03-16] MEDS: FERROUS SO4 325 MG TABLET (FP) PO SCH ×2 (09:18→21:13)
[2019-03-16] MEDS ORDERED: DIPHTH,PERTUSS(ACELL),TET 0.5 ML DISP.SYRIN IM ONE ×3 (10:00→15:00)
[2019-03-16] MEDS ORDERED: SENNOSIDES/DOCUSATE COMBO (SENNA PLUS) TABLET (UD) PO PRN (22:00)
[2019-03-17] MEDS: FERROUS SO4 325 MG TABLET (FP) PO SCH (09:51)
[2019-03-17] MEDS: PRENATAL VITAMINS W/ FOLIC ACID TABLET (FP) PO SCH (09:51)
--- NOTE | 2019-03-17 10:36 | DS ---
Physical Exam-DB2 DEVELOPER Vital Signs: Vital Signs Temperature 98.4 F 03/16/19 22:00 Pulse Rate 75 03/16/19 22:00 Respiratory Rate 18 03/16/19 22:00 Blood Pressure 126/65 03/16/19 22:00 O2 Sat by Pulse Oximetry (%) 100 03/15/19 06:45 Constitutional: Yes: Well Nourished, No Distress Neck: Yes: WNL Cardiovascular: Yes: WNL Respiratory: Yes: WNL Gastrointestinal: Yes: WNL, Normal Bowel Sounds, Soft ....Post : Yes: Uterus firm, Uterus non-tender Breast(s): Yes: WNL Labs: CBC, BMP 03/16/19 06:00 03/14/19 19:00 Delivery - Delivery Vaginal Delivery: Spontaneous Type of Anesthesia: Epidural Episiotomy/Laceration: None EBL (cc): 300 Delivery, Single - Stages of Labor Date 1st Stage Initiatied: 03/14/19 Time 1st Stage Initiated: 21:45 Date 2nd Stage Initiated: 03/15/19 Time 2nd Stage Initiated: 04:15 Date of Delivery: 03/15/19 Time of Delivery: 05:39 Time Placenta Delivered: 05:42 - 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/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 Metal Bench Present: No Infant Gender: Male Weight: 7 lb 3.8 oz Position: Right, OA Total Hours ROM (Hrs/Mins): 8 hours 32 minutes - 1 Minute Total Score: 9 5 Minutes Total Score: 9 - Feeding Plan Initial Plan: Elected not to breastfeed exclusively throughout hospitalization Discharge Summary Reason For Visit: LABOR Current Active Problems 39 weeks gestation of (Acute) (normal spontaneous vaginal delivery) (Acute) Condition: Good - Instructions Diet, Activity, Other Instructions: Physical activity Resume your normal everyday activity as tolerated no heavy lifting or exercise until seen by your surgeon. You may walk unlimited christa of and climb stairs. You may resume driving the car when you feel safe and comfortable behind the wheel. No sexual activity as instructed. Wound care If you have a bandage, leave it on, and keep dry for 48-72 hours. After that time discard the outer bandage. If they are tapes on the skin under the out of bandage leave them in place. They will peel off in the next 7 to 10 days. Do Not Peel them off. You may shower the day after surgery. If there are tapes present on the skin, you may shower over them. Diet There are no dietary restrictions. Eat healthy, high-fiber foods. Drink 6 to 8 glasses of liquid each day. This will assist in keeping your bowels are regular. Pain management You may take Tylenol or acetaminophen or Ibuprofen (for example, Motrin, Advil etc.) from my pain prescription medication is ordered should be taken as prescribed for moderate to severe pain. Call MD for any of the following: Severe pain not relieved by medication Fever of 101 or higher Excessive bleeding or drainage on dressing Inability to urinate Disposition: HOME - Home Medications Comprehensive Discharge Medication List: Ambulatory Orders Prenat 115/Iron Fum/Folic/Dss [ 19 Tablet] 1 each PO DAILY 08/23/18 Ibuprofen [Motrin -] 600 mg PO QID #28 tablet 03/16/19
[2019-03-17 10:43] VITALS: BP 104/59; PULSE 92; TEMP 98
== END 2019-03-17 12:21 | disposition home or self-care (01) | DRG 560 ==
LOC: JLDR 17:50 → J3W 03-15 08:32
PROVIDERS: ADMIT Obstetrics & Gynecology; ATTEND Obstetrics & Gynecology
PROC: 10E0XZZ Delivery of Products of Conception, External Approach (ICD-10-PCS; principal; 2019-03-15)
DX: O80 Encounter for full-term uncomplicated delivery (principal); Z3A.39 39 weeks gestation of pregnancy; Z37.0 Single live birth
CPT/HCPCS: 36415; 59409; 80048; 85025; 85610; 85730; 86593; 86850; 86900; 86901; 87389; 90715

== ENCOUNTER 2021-01-23 20:16 | Emergency (ER) | payer OTHER ==
[2021-01-23 20:29] VITALS: BP 115/74; PULSE 75; TEMP 98.4; BMI 27.3
== END 2021-01-24 00:14 | disposition home or self-care (01) ==
LOC: JER 20:16
DX: R60.9 Edema, unspecified (principal)
CPT/HCPCS: 93970-TC; 99284-25